=== PATIENT | female | born 1985 | race African-American/Black ===

== ENCOUNTER 2022-07-17 21:10 | Emergency (ER) | payer OTHER ==
[~2022-07-17] VITALS: Ht 154.9 cm; Wt 65.0 kg
[2022-07-17 21:13] VITALS: BP 156/67
== END 2022-07-18 01:00 | disposition left against medical advice (07) ==
LOC: ER 21:10
DX: Z53.21 Procedure and treatment not carried out due to patient leaving prior to being seen by health care provider (principal)
CPT/HCPCS: 82962; 99281